=== PATIENT | female | born 2005 | race Caucasian/White ===

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

== ENCOUNTER 2023-02-21 06:00 | Emergency (ER) | payer OTHER ==
[2023-02-21 06:09] VITALS: BMI 24.0
[2023-02-21] MEDS ORDERED: FAMOTIDINE 20 MG/50 ML IVPB 20 MG/50 ML MG IVPB ONE ×2 (07:39→07:43)
[2023-02-21] MEDS ORDERED: LACTATED RINGERS SOLUTION 1000 ML INFUS.BAG IV ONE (07:39)
[2023-02-21] MEDS ORDERED: ACETAMINOPHEN 1000 MG/100 ML BAG IVPB ONE (07:39)
[2023-02-21] MEDS ORDERED: ACETAMINOPHEN INJECTION 100 ML IVPB ONE (07:42)
[2023-02-21 09:20] LABS: BASO % 0.4 % (0-2.0); EOS % 0.7 % (0-4.5); HEMATOCRIT 37.7 % (32.4-45.2); HEMOGLOBIN 12.9 GM/dL (10.7-15.3); MCH 31.4 pg (25.7-33.7); MCHC 34.2 g/dl (32.0-36.0); MEAN CELL VOLUME 91.9 fl (80-96); MEAN PLT VOLUME 7.8 fl (7.5-11.1); MONO % 5.9 % (3.8-10.2); PLATELET COUNT 335 10^3/uL (134-434); RDW 13.1 % (11.6-15.6); WHITE BLOOD COUNT 9.1 K/mm3 (4.0-10.0)
[2023-02-21 09:56] LABS: POTASSIUM 3.8 mmol/L (3.5-5.1)
[2023-02-21 09:58] LABS: ALBUMIN 3.1 g/dl (3.4-5.0); BLOOD UREA NITROGEN 5.2 mg/dL (7-18)
[2023-02-21 10:01] LABS: CREATININE 0.4 mg/dL (0.55-1.3)
[2023-02-21 10:03] LABS: BILIRUBIN,TOTAL 0.2 mg/dL (0.2-1)
[2023-02-21 10:24] VITALS: BP 105/68; PULSE 80; RESP 19; TEMP 98.3
== END 2023-02-21 10:55 | disposition home or self-care (01) ==
LOC: JER 06:00
PROC: 3E033GC Introduction of Other Therapeutic Substance into Peripheral Vein, Percutaneous Approach (ICD-10-PCS; principal; 2023-02-21)
PROC: 3E033GC Introduction of Other Therapeutic Substance into Peripheral Vein, Percutaneous Approach (ICD-10-PCS; 2023-02-21)
DX: O26.891 Other specified pregnancy related conditions, first trimester (principal); R12 Heartburn; O99.341 Other mental disorders complicating pregnancy, first trimester; F41.9 Anxiety disorder, unspecified; Z3A.12 12 weeks gestation of pregnancy
CPT/HCPCS: 36415; 76817-TC; 80053; 84702; 85025; 93005; 93010; 99285-25

== ENCOUNTER 2023-08-31 04:30 | Inpatient (IN) | payer OTHER ==
[2023-08-31] MEDS ORDERED: ELECTROLYTE-148 SOLN 500 ML IV PRN (05:48)
[2023-08-31] MEDS: ELECTROLYTE-148 SOLN 1,000 ML IV SCH (06:00)
[2023-08-31 06:07] VITALS: BMI 28.7
[2023-08-31 06:22] LABS: POTASSIUM 3.6 mmol/L (3.5-5.1)
[2023-08-31 06:23] LABS: CALCIUM 8.7 mg/dL (8.5-10.1)
[2023-08-31 06:27] LABS: CREATININE 0.5 mg/dL (0.55-1.3)
[2023-08-31 06:31] LABS: BASO % 0.9 % (0-2.0); EOS % 1.7 % (0-4.5); HEMATOCRIT 34.8 % (32.4-45.2); HEMOGLOBIN 11.7 GM/dL (10.7-15.3); MCH 29.1 pg (25.7-33.7); MCHC 33.5 g/dl (32.0-36.0); MEAN PLT VOLUME 7.8 fl (7.5-11.1); MONO % 5.9 % (3.8-10.2); NEUT % 65.5 % (42.8-82.8); PLATELET COUNT 264 10^3/uL (134-434); RDW 16.5 % (11.6-15.6); WHITE BLOOD COUNT 12.4 K/mm3 (4.0-10.0)
[2023-08-31 06:43] LABS: INR 0.93 (0.83-1.09); PROTHROMBIN TIME (PATIENT) 10.8 SEC (9.7-13.0)
[2023-08-31] MEDS ORDERED: BUTORPHANOL TARTRATE 2 MG/ML VIAL ONE (08:37)
[2023-08-31] MEDS ORDERED: PROMETHAZINE HCL 25 MG/1 ML VIAL ONE (08:38)
[2023-08-31] MEDS: BUTORPHANOL TARTRATE 1 MG/ML VIAL IVPB ONE (08:49)
[2023-08-31] MEDS: PROMETHAZINE HCL 25 MG/1 ML VIAL IVPB ONE (08:49)
[2023-08-31] MEDS ORDERED: FENTANYL/BUPIVACAINE/NS/PF - PCEA - 50 ML DISP.SYRIN EP ONE (10:28)
[2023-08-31] MEDS ORDERED: OXYTOCIN 20 UNITS in 0.9% NS 20 UNIT/1,000 ML INFUS.BAG IV ONE (10:50)
[2023-08-31] MEDS ORDERED: LIDOCAINE HCL 1% PRESERVATIVE FREE - 30ML VIAL ONE (10:50)
[2023-08-31] MEDS ORDERED: NALOXONE HCL 0.4 MG/ML VIAL IVPUSH PRN (10:57)
[2023-08-31] MEDS ORDERED: OXYTOCIN 30 UNITS in 0.9% NS 30 UNIT/500 ML INFUS.BAG IVPB ONE (11:06)
[2023-08-31] MEDS ORDERED: METHYLERGONOVINE MALEATE 0.2 MG/1 ML AMP IM PRN (11:45)
[2023-08-31] MEDS ORDERED: BISACODYL 10 MG SUPP.RECT RC PRN (11:45)
[2023-08-31] MEDS ORDERED: ACETAMINOPHEN 325 MG TABLET (FP) PO PRN (11:45)
[2023-08-31] MEDS ORDERED: BENZOCAINE 28 GM HEMORRHOIDAL OINTMENT TP PRN (11:45)
[2023-08-31] MEDS ORDERED: BENZOCAINE 20% 57 GM BOTTLE TP PRN (11:45)
[2023-08-31] MEDS ORDERED: WITCH HAZEL 50% (TUCKS) 40 PAD/JAR PAD TP PRN (11:45)
[2023-08-31] MEDS ORDERED: oxyCODONE HCL 5 MG TABLET PO PRN (11:45)
[2023-08-31] MEDS: OXYTOCIN 20 UNITS in 0.9% NS 20 UNIT/1,000 ML INFUS.BAG IV SCH (11:50)
[2023-08-31] MEDS: FENTANYL/BUPIVACAINE/NS/PF - PCEA - 50 ML DISP.SYRIN EP SCH (12:08)
[2023-08-31 12:54] LABS: CORD HCO3 24.1 mmHg (20-29); CORD PCO2 63.3 mmHg (30-78); CORD pH 7.199 (7.14-7.44)
[2023-08-31 12:58] LABS: CORD BASE EXCESS -4.6 mmol/L (0-2); CORD HCO3 21.8 mmHg (20-29); CORD PCO2 45.1 mmHg (30-78); CORD pH 7.303 (7.14-7.44)
[2023-08-31] MEDS ORDERED: IBUPROFEN 600 MG TABLET (FP) PO ONE (13:43)
[2023-08-31] MEDS: IBUPROFEN 600 MG TABLET (FP) PO PRN (13:45)
[2023-08-31 15:40] LABS: PHENCYCLIDINE,URINE NEGATIVE (NEGATIVE); URINE AMPHETAMINES NEGATIVE (NEGATIVE); URINE BENZODIAZEPINES NEGATIVE (NEGATIVE)
[2023-08-31 15:41] LABS: OPIATES, URI NEGATIVE (NEGATIVE)
[2023-08-31 15:42] LABS: METHADONE, UR NEGATIVE (NEGATIVE); URINE BARBITURATES NEGATIVE (NEGATIVE)
[2023-08-31 15:46] LABS: COCAINE, UR NEGATIVE (NEGATIVE)
[2023-09-01 07:09] LABS: BASO % 0.3 % (0-2.0); EOS % 0.9 % (0-4.5); HEMATOCRIT 22.8 % (32.4-45.2); HEMOGLOBIN 7.5 GM/dL (10.7-15.3); LYMPH % 23.3 % (8-40); MCH 29.1 pg (25.7-33.7); MEAN PLT VOLUME 7.8 fl (7.5-11.1); MONO % 6.9 % (3.8-10.2); NEUT % 68.6 % (42.8-82.8); PLATELET COUNT 217 10^3/uL (134-434); RBC 2.59 M/mm3 (3.60-5.2); RDW 16.6 % (11.6-15.6); WHITE BLOOD COUNT 13.9 K/mm3 (4.0-10.0)
[2023-09-01 16:02] LABS: HEMOGLOBIN 7.3 GM/dL (10.7-15.3); MCH 29.3 pg (25.7-33.7); MCHC 33.2 g/dl (32.0-36.0); MEAN CELL VOLUME 88.2 fl (80-96); MEAN PLT VOLUME 7.9 fl (7.5-11.1); PLATELET COUNT 200 10^3/uL (134-434); RDW 17.1 % (11.6-15.6); WHITE BLOOD COUNT 13.4 K/mm3 (4.0-10.0)
[2023-09-02] MEDS: SENNOSIDES/DOCUSATE COMBO (SENNA PLUS) TABLET (UD) PO PRN (01:28)
[2023-09-02 09:40] VITALS: BP 128/77; PULSE 81; RESP 12; TEMP 97.3
== END 2023-09-02 15:05 | disposition home or self-care (01) | DRG 560 ==
LOC: JLDR 04:30 → J3W 14:15
PROVIDERS: ADMIT Student in an Organized Health Care Education/Training Program; ATTEND Obstetrics & Gynecology
PROC: 10E0XZZ Delivery of Products of Conception, External Approach (ICD-10-PCS; principal; 2023-08-31)
PROC: 0W8NXZZ Division of Female Perineum, External Approach (ICD-10-PCS; 2023-08-31)
DX: O48.0 Post-term pregnancy (principal); Z3A.40 40 weeks gestation of pregnancy; Z37.0 Single live birth
CPT/HCPCS: 36415; 36600; 80048; 80307; 82803; 85025; 85027; 85610; 86780; 86850; 86900; 86901

== ENCOUNTER 2023-09-05 02:09 | Emergency (ER) | payer OTHER ==
[2023-09-05 02:24] VITALS: BP 121/77; PULSE 82; RESP 18; TEMP 98.3; BMI 27.3
[2023-09-05] MEDS ORDERED: LIDOCAINE 2.5%/PRILOCAINE 2.5% (5 Gram/TUBE) TP ONE (05:30)
[2023-09-05] MEDS: LIDOCAINE 2.5%/PRILOCAINE 2.5% (5 Gram/TUBE) TP ONE (05:47)
== END 2023-09-05 06:42 | disposition home or self-care (01) ==
LOC: JER 02:09
DX: O87.2 Hemorrhoids in the puerperium (principal)
CPT/HCPCS: 99283-25

== ENCOUNTER 2024-06-21 12:03 | Emergency (ER) | payer OTHER ==
[2024-06-21 12:19] VITALS: BP 110/74; PULSE 75; RESP 19; TEMP 98.6; BMI 28.3
[2024-06-21 14:22] LABS: BASO % 0.6 % (0-2.0); EOS % 2.2 % (0-4.5); HEMATOCRIT 43.7 % (32.4-45.2); HEMOGLOBIN 14.5 GM/dL (10.7-15.3); LYMPH % 31.4 % (8-40); MCH 29.2 pg (25.7-33.7); MCHC 33.1 g/dl (32.0-36.0); MEAN CELL VOLUME 88.2 fl (80-96); MEAN PLT VOLUME 7.6 fl (7.5-11.1); MONO % 4.9 % (3.8-10.2); NEUT % 60.9 % (42.8-82.8); PLATELET COUNT 356 10^3/uL (134-434); RBC 4.96 M/mm3 (3.60-5.2); RDW 16.2 % (11.6-15.6); WHITE BLOOD COUNT 8.3 K/mm3 (4.0-10.0)
[2024-06-21 14:46] LABS: CHLORIDE 107 mmol/L (98-107); POTASSIUM 4.4 mmol/L (3.5-5.1); SODIUM 139 mmol/L (136-145)
[2024-06-21 14:50] LABS: ALBUMIN 4.4 g/dl (3.4-5.0); ANION GAP 10 mmol/L (4-13); CALCIUM 9.6 mg/dL (8.5-10.1); CO2 22 mmol/L (21-32)
[2024-06-21 14:51] LABS: BLOOD UREA NITROGEN 7.4 mg/dL (7-18); GLUCOSE,RANDOM 95 mg/dL (74-106)
[2024-06-21 14:54] LABS: CREATININE 0.6 mg/dL (0.55-1.3); SGOT/AST 32 U/L (15-37); SGPT/ALT 33 U/L (13-61)
[2024-06-21 14:55] LABS: BILIRUBIN,TOTAL 0.8 mg/dL (0.2-1); PH,URINE 6.5 (5.0-8.0); TOT PROT 8.4 g/dl (6.4-8.2); URINE APPEARANCE CLEAR; URINE BILIRUBIN NEGATIVE (NEGATIVE); URINE COLOR YELLOW; URINE GLUCOSE (UA) NEGATIVE (NEGATIVE); URINE KETONE NEGATIVE (NEGATIVE); URINE LEUK ESTERASE NEGATIVE (NEGATIVE); URINE NITRITE NEGATIVE (NEGATIVE); URINE PROTEIN NEGATIVE (NEGATIVE); URINE UROBILINOGEN 0.2 mg/dL (0.2-1.0)
[2024-06-21 14:57] LABS: ALK PHOS 145 U/L (45-117)
[2024-06-21 21:02] LABS: HIV INTERPRETATION NEGATIVE (NEGATIVE)
== END 2024-06-21 15:41 | disposition home or self-care (01) ==
LOC: JER 12:03
DX: N92.0 Excessive and frequent menstruation with regular cycle (principal)
CPT/HCPCS: 36415; 80053; 81003; 84702; 85025; 86803; 87086; 87389; 99284-25

== ENCOUNTER 2024-11-01 16:30 | Emergency (ER) | payer OTHER ==
[2024-11-01 16:37] VITALS: TEMP 98.2; BMI 24.5
[2024-11-01] MEDS ORDERED: ACETAMINOPHEN INJECTION 100 ML ONE (18:22)
[2024-11-01] MEDS: SODIUM CHLORIDE 0.9% 500 ML INFUS.BAG IV ONE (18:41)
[2024-11-01] MEDS: ACETAMINOPHEN 1000 MG/100 ML BAG IVPB ONE (18:42)
[2024-11-01 18:54] LABS: ABSOLUTE IMMATURE GRANULOCYTES 0.03 x10^3/uL (0.0-0.031); BASOPHILS # 0.02 x10^3/uL (0.01-0.08); EOSINOPHIL % 1.6 % (0.7-5.8); EOSINOPHILS # 0.18 x10^3/uL (0.04-0.36); HEMATOCRIT 42.5 % (34.1-44.9); HEMOGLOBIN 13.8 g/dL (11.2-15.7); MCHC 32.5 g/dl (32.2-35.5); MEAN PLT VOLUME 9.5 fl (9.4-12.3); MONOCYTE # 0.56 x10^3/uL (0.24-0.86); MONOCYTE % 4.9 % (4.7-12.5); PLATELET COUNT 347 x10^3/uL (182-369); RDW 13.6 % (12.0-16.2)
[2024-11-01 19:08] LABS: POTASSIUM 3.7 mmol/L (3.5-5.1)
[2024-11-01 19:10] LABS: ALBUMIN 4.1 g/dl (3.4-5.0); BLOOD UREA NITROGEN 8.1 mg/dL (7-18)
[2024-11-01 19:14] LABS: CREATININE 0.6 mg/dL (0.55-1.3)
[2024-11-01 19:15] LABS: BILIRUBIN,TOTAL 0.8 mg/dL (0.2-1)
[2024-11-01 20:48] VITALS: BP 109/67; PULSE 78; RESP 16
== END 2024-11-01 20:43 | disposition home or self-care (01) ==
LOC: JER 16:30
DX: R51.9 Headache, unspecified (principal)
CPT/HCPCS: 36415; 70450-TC; 80053; 84703; 85025; 99285-25; J0131